=== PATIENT | female | born 1945 | race Caucasian/White ===

== ENCOUNTER 2019-07-30 15:13 | Emergency (ER) | payer MEDICARE, BC ==
[2019-07-30 16:42] VITALS: BP 123/66
--- NOTE | 2019-07-30 17:27 | ED ---
Throat Pain/Nasal Congestion - HPI Summary HPI Summary: 74 yr old female with the complaint of left ear pain. Onset about one week. She notices it hurts to touch her ear, and the canal hurts. No drainage. She states she has dermatitis of her external canal in the past. She states she has no drainage or change in her hearing. No fever or chills. - History of Current Complaint Chief Complaint: UCEar Time Seen by Provider: 07/30/19 17:13 - Allergies/Home Medications Allergies/Adverse Reactions: Allergies Allergy/AdvReac Type Severity Reaction Status Date / Time latex Allergy Rash Verified 07/30/19 16:33 Home Medications: Home Medications Blood Pressure Med 1 tab PO DAILY 07/30/19 [History] Pantoprazole TAB * [Protonix TAB*] 40 mg PO BID 07/30/19 [History Confirmed ] PMH/Surg Hx/FS Hx/Imm Hx Endocrine/Hematology History: Denies: Hx Diabetes Cardiovascular History: Denies: Hx Hypertension, Hx Pacemaker/ICD Respiratory History: Denies: Hx Asthma History: Denies: Hx Renal Disease Sensory History: Denies: Hx Hearing Aid Psychiatric History: Denies: Hx Panic Disorder - Cancer History Hx Radiation Therapy: No - Surgical History Surgery Procedure, Year, and Place: FINE NEEDLE BIOPSY RT BREAST/APPY/ HYSTERECTOMY. [place] Infectious Disease History: Yes Infectious Disease History: Reports: Hx of Known/Suspected MRSA Denies: Traveled Outside the [place] in Last 30 Days - Family History Known Family History: Positive: None - Social History Alcohol Use: Rare Substance Use Type: Reports: None Smoking Status (MU): Former Smoker Review of Systems Constitutional: Negative Positive: Ear Ache All Other Systems Reviewed And Are Negative: Yes Physical Exam Triage Information Reviewed: Yes Vital Signs On Initial Exam: Initial Vitals Temp Pulse Resp BP Pulse Ox 98 F 73 15 123/66 98 07/30/19 16:36 07/30/19 16:36 07/30/19 16:36 07/30/19 16:36 07/30/19 16:36 Vital Signs Reviewed: Yes Appearance: Positive: Well-Appearing, No Pain Distress Skin: Positive: Warm, Skin Color Reflects Adequate Perfusion Head/Face: Positive: Normal Head/Face Inspection Eyes: Positive: EOMI ENT: Positive: Pharynx normal, Nasal congestion, TMs normal, Other - left external canal is with erythema and edema. TM WNL. Neck: Positive: Nontender Respiratory/Lung Sounds: Positive: Clear to Auscultation, Breath Sounds Present Cardiovascular: Positive: RRR Abdomen Description: Positive: Nontender Musculoskeletal: Positive: Strength/ROM Intact Neurological: Positive: Sensory/Motor Intact, Alert, Oriented to Person Place, Time, CN Intact II-III, Normal Gait Psychiatric: Positive: Normal Diagnostics - Vital Signs Vital Signs Temp Pulse Resp BP Pulse Ox 07/30/19 16:36 98 F 73 15 123/66 98 - Laboratory Lab Statement: Any lab studies that have been ordered have been reviewed, and results considered in the medical decision making process. EENT Course/Dx - Course Course Of Treatment: Left otitis externa. DC home. Ciprodex otic. - Diagnoses Provider Diagnoses: Left otitis externa Discharge ED - Sign-Out/Discharge Documenting (check all that apply): Patient Departure All imaging exams completed and their final reports reviewed: No Studies - Discharge Plan Condition: Good Disposition: HOME Prescriptions: Ciproflox/Dexameth OTIC.SUSP* [Ciprodex OTIC.SUSP*] 4 drop OTIC BID #1 btl Patient Education Materials: Otitis Externa (ED) Referrals: Jasmine Porter MD [Primary Care Provider] - 2 Days Ramon Lawrence MD [Medical Doctor] - - Billing Disposition and Condition Condition: GOOD Disposition: Home
== END 2019-07-30 17:30 | disposition home or self-care (01) ==
LOC: UCCORT 15:13
DX: H60.92 Unspecified otitis externa, left ear (principal); Z91.09 Other allergy status, other than to drugs and biological substances; Z87.891 Personal history of nicotine dependence
CPT/HCPCS: 99212; G0463